=== PATIENT | male | born 1990 | race African-American/Black ===

== ENCOUNTER 2017-02-01 12:16 | Emergency (ER) | payer MEDICAID ==
[~2017-02-01] VITALS: Ht 172.7 cm; Wt 69.0 kg
[2017-02-01 15:49] VITALS: BP 95/63
== END 2017-02-01 19:25 | disposition left against medical advice (07) ==
LOC: ER 15:58
DX: R11.10 Vomiting, unspecified (principal); R10.9 Unspecified abdominal pain; Z53.21 Procedure and treatment not carried out due to patient leaving prior to being seen by health care provider

== ENCOUNTER 2017-10-14 04:49 | Emergency (ER) | payer MEDICAID ==
[~2017-10-14] VITALS: Ht 175.3 cm; Wt 73.0 kg
[2017-10-14] MEDS ORDERED: ONDANSETRON HCL 4MG/2ML VIAL IV STA (07:49)
[2017-10-14] MEDS ORDERED: MORPHINE SULFATE 4 MG/ML CPJ (NOT FOR IM USE) IV STA (07:49)
[2017-10-14] MEDS ORDERED: SODIUM CHLORIDE 0.9% 1,000 ML IV ONE (07:49)
[2017-10-14 08:24] LABS: BASOPHILS % 0.7 % (0.0-2.0); EOSINOPHILS % 2.4 % (0.0-5.0); HEMATOCRIT. 38.9 % (42.0-52.0); HEMOGLOBIN. 13.3 g/dL (14.0-18.0); LYMPHOCYTES % 12.1 % (20.0-50.0); MEAN CORPUSCULAR HEMOGLOBIN 30.5 pg (28.0-32.0); MEAN CORPUSCULAR VOLUME 89.2 fL (80.0-94.0); MEAN PLATELET VOLUME 8.9 fl (7.4-10.4); MONOCYTES % 6.2 % (2.0-8.0); NEUTROPHILS % 78.6 % (40.0-76.0); PLATELET 171 x1000/uL (130-400); RED BLOOD CELL COUNT 4.36 mill/uL (4.7-6.1); RED CELL DISTRIBUTION WIDTH 13.4 % (11.6-14.6)
[2017-10-14 08:31] LABS: CHLORIDE 103 mEq/L (98-107)
[2017-10-14 08:32] LABS: INR 1.1; PROTHROMBIN TIME 11.1 sec (9.4-11.6)
[2017-10-14] MEDS ORDERED: IOHEXOL-300 100 ML BOTTLE ONE (09:17)
[2017-10-14] MEDS ORDERED: KETOROLAC 30MG/ML VIAL IV ONE (10:00)
[2017-10-14 10:20] LABS: KETONES URINE NEGATIVE (NEGATIVE); LEUKOCYTE ESTERASE URINE 1+ (NEGATIVE); NITRITE URINE NEGATIVE (NEGATIVE); OCCULT BLOOD URINE 3+ (NEGATIVE); PH URINE 7.5 (4.5-8.0); PROTEIN URINE 1+ (NEGATIVE); UROBILINOGEN URINE 0.2 E.U./dL (0.2-1.0)
[2017-10-14 10:21] VITALS: BP 95/54
[2017-10-14 10:21] LABS: CLARITY URINE CLOUDY (CLEAR); COLOR URINE DARK YELLOW (YELLOW)
== END 2017-10-14 12:09 | disposition home or self-care (01) ==
LOC: ER 05:35
DX: N23 Unspecified renal colic (principal)
CPT/HCPCS: 36415; 74177; 80053; 81003; 83605; 83690; 85025; 85610; 96361; 96374; 96375; 99285; J1885; J2270; J2405; J7030; Q9967; Z7610